=== PATIENT | male | born 1995 | race Caucasian/White ===

== ENCOUNTER → 2017-11-20 | Day surgery (SDC) | payer BC ==
--- NOTE | 2017-11-20 17:18 | RADIOLOGY REPORT (SQ) ---
EXAM DESCRIPTION: ARTHRO WRIST INJECTION; FLUORO/NEEDLE PLACEMENT COMPLETED DATE/TIME: 11/20/2017 2:59 pm; 11/20/2017 3:01 pm REASON FOR STUDY: PAIN IN LEFT WRIST M25.532 PAIN IN LEFT WRIST COMPARISON: None. FLUOROSCOPY TIME: 10 seconds 1 digital radiographic images saved to PACS. LIMITATIONS: None. PROCEDURE: Procedure, risks, benefits and alternatives explained to patient who then gave written co nsent. The dorsal left wrist was marked and a time-out was called for correct marking verification. Radiocarpal site marked using fluoroscopic guidance. Wrist prepped and draped using sterile techniqu e. Local anesthesia achieved using 4 mL of 1% lidocaine injection. 25 gauge needle introduced into the joint space under direct fluoroscopic visualization. Non-ionic contrast instilled to confirm intr a-articular position. Dilute gadolinium solution then injected. Needle removed and entry site covere d with sterile bandage. No immediate complications noted. TECHNIQUE: Digital images acquired during fluoroscopy and stored on PACS. Patient immediately take n to the MR suite for additional imaging. INJECTION LOCATION: Left dorsal radioscaphoid joint CONTRAST TYPE AND AMOUNT: 0.5 mL of Isovue-300 was injected to confirm intra-articular needle placeme nt. This was followed with 3 mL of dilute Prohance/Saline mixture. IMPRESSION: SUCCESSFUL NEEDLE PLACEMENT AND INJECTION FOR LEFT WRIST MR ARTHROGRAM. COMMENT: Quality ID #[id number]: Final reports for procedures using fluoroscopy that document radiation exp osure indices, or exposure time and number of fluorographic images (if radiation exposure indices are not available) TECHNICAL DOCUMENTATION: JOB ID: [id number] [employer]- All Rights Reserved Reading location - IP/workstation name: [facility]
--- NOTE | 2017-11-20 17:18 | RADIOLOGY REPORT (SQ) ---
EXAM DESCRIPTION: ARTHRO WRIST INJECTION; FLUORO/NEEDLE PLACEMENT COMPLETED DATE/TIME: 11/20/2017 2:59 pm; 11/20/2017 3:01 pm REASON FOR STUDY: PAIN IN LEFT WRIST M25.532 PAIN IN LEFT WRIST COMPARISON: None. FLUOROSCOPY TIME: 10 seconds 1 digital radiographic images saved to PACS. LIMITATIONS: None. PROCEDURE: Procedure, risks, benefits and alternatives explained to patient who then gave written co nsent. The dorsal left wrist was marked and a time-out was called for correct marking verification. Radiocarpal site marked using fluoroscopic guidance. Wrist prepped and draped using sterile techniqu e. Local anesthesia achieved using 4 mL of 1% lidocaine injection. 25 gauge needle introduced into the joint space under direct fluoroscopic visualization. Non-ionic contrast instilled to confirm intr a-articular position. Dilute gadolinium solution then injected. Needle removed and entry site covere d with sterile bandage. No immediate complications noted. TECHNIQUE: Digital images acquired during fluoroscopy and stored on PACS. Patient immediately take n to the MR suite for additional imaging. INJECTION LOCATION: Left dorsal radioscaphoid joint CONTRAST TYPE AND AMOUNT: 0.5 mL of Isovue-300 was injected to confirm intra-articular needle placeme nt. This was followed with 3 mL of dilute Prohance/Saline mixture. IMPRESSION: SUCCESSFUL NEEDLE PLACEMENT AND INJECTION FOR LEFT WRIST MR ARTHROGRAM. COMMENT: Quality ID #[id number]: Final reports for procedures using fluoroscopy that document radiation exp osure indices, or exposure time and number of fluorographic images (if radiation exposure indices are not available) TECHNICAL DOCUMENTATION: JOB ID: [id number] [employer]- All Rights Reserved Reading location - IP/workstation name: [facility]
--- NOTE | 2017-11-21 08:07 | RADIOLOGY REPORT (SQ) ---
EXAM DESCRIPTION: MRI LT UPPER JOINT WITH COMPLETED DATE/TIME: 11/20/2017 4:44 pm REASON FOR STUDY: PAIN IN LEFT WRIST M25.532 PAIN IN LEFT WRIST COMPARISON: None. TECHNIQUE: Left wrist post-arthrogram imaging includes T1 and T1 and T2 fat sat sequences. LIMITATIONS: Motion artifact, joint is over distended FINDINGS: JOINT DISTENSION: Slightly over distended with some leakage of contrast from the piriform recess and radioscaphoid joint. No loose body. BONE MARROW: No alteration of signal to suggest marrow replacement or edema. No occult fracture. No l arge osteophytes. Benign bone island in the trapezium on coronal image 11 and sagittal image 12. CARPAL ALIGNMENT AND ARTICULATION: Normal congruity of sigmoid notch at level of distal ruj without p ositive or negative ulnar variance. Normal capitolunate angle. No widening of scapholunate articulati on. SCAPHOLUNATE LIGAMENT: Without tear. No contrast in middle carpal compartment. LUNATO-TRIQUETRAL LIGAMENT: Without tear. No contrast in middle carpal compartment. TFC COMPLEX: Radial and ulnar attachments normal. Meniscus intact. Extensor carpi ulnaris tendon norm al without tendinopathy. No contrast in distal RUJ. EXTRINSIC LIGAMENTS AND DISTAL RADIO-ULNAR JOINT: Dorsal and volar distal RUJ ligaments intact withou t subluxation of the distal ulna with respect to the radius. 1-6 EXTENSOR COMPARTMENTS: Small amount of injected lidocaine in the extensor compartments. Specific ally no tendinopathy of the abductor pollicis longus or extensor pollicis brevis to suggest de Querva ins syndrome. CARPAL TUNNEL AND MEDIAN NERVE: Normal volume and morphology of carpal tunnel proximal at the level o f the radiocarpal joint and distally at the hook of the hamate. No thickening or signal alteration of median nerve. OTHER: 4 mm ganglion cyst along the scaphotrapezium joint, palmar aspect. This is best shown on charlie nal T2 image 8 and axial T2 image 9. IMPRESSION: No MR evidence of occult scaphoid fracture. No MR evidence of scapholunate ligament tear. No extension of contrast into the middle compartment. 4 mL ganglion cyst along the palmar aspect of the scaphotrapezium joint TECHNICAL DOCUMENTATION: JOB ID: [id number] [employer]- All Rights Reserved Reading location - IP/workstation name: [facility]
== END ==
LOC: RAD 14:06
PROVIDERS: ATTEND Orthopaedic Surgery
DX: M25.532 Pain in left wrist (principal); M67.432 Ganglion, left wrist
CPT/HCPCS: 25246; 77002

== ENCOUNTER 2018-06-08 20:05 | Emergency (ER) | payer SELFPAY ==
--- NOTE | 2018-06-08 20:50 | EKG REPORT ---
SEVERITY:- BORDERLINE ECG - SINUS RHYTHM INFERIOR Q WAVES, PROBABLY NORMAL VARIATION : Confirmed by: Jasmyne Loja 08-Jun-2018 20:49:35
[2018-06-08] MEDS ORDERED: ASPIRIN 81 MG TABLET, CHEWABLE PO ONE (22:21)
--- NOTE | 2018-06-08 22:23 | ER Document Report ---
ED Medical Screen (RME) - General Chief Complaint: Chest Pain Stated Complaint: CHEST PAIN Time Seen by Provider: 06/08/18 22:17 Notes: Patient is a 23-year-old male presents the emergency department complaining of generalized chest pain. Patient states initially the pain started in the center of his chest and felt as though a squeezing of his heart. Patient states at that time the pain did radiate to his left shoulder. States he got dizzy and was weak at that time. Patient states now he only has a generalized pressure in the center of his chest. Patient denies any history of GERD or eating anything out of the ordinary. Patient denies any cough or congestion or fever. Patient states he does believe that his father had a heart attack at age 40 and states that on his paternal side there are a lot of "heart issues." Past medical history: None Medications: None Allergies: Morphine Patient states he does smoke marijuana on a regular basis but denies any use of cocaine or any other illicit drugs. GENERAL: Alert, interacts well. No acute distress. LUNGS: Clear to auscultation bilaterally, no wheezes, rales, or rhonchi. No respiratory distress. HEART: Regular rate and rhythm. No murmur Chest: No crepitus felt, no erythema or ecchymosis noted. Pain does not change upon deep palpation or inspiration. I have greeted and performed a rapid initial assessment of this patient. A comprehensive ED assessment and evaluation of the patient, analysis of test results and completion of the medical decision making process will be conducted by additional ED providers. TRAVEL OUTSIDE OF THE [place] IN LAST 30 DAYS: No - Related Data Allergies/Adverse Reactions: morphine Adverse Reaction (Severe, Verified 06/08/18 20:10) Seizures Past Medical History - Social History Drug Abuse: Marijuana Family history: CAD, DM, Hypertension, Other - mental health Pulmonary Medical History: Reports: Hx Asthma - As a youth Renal/ Medical History: Denies: Hx Peritoneal Dialysis Psychiatric Medical History: Reports: Hx Anxiety, Hx Depression - manic Past Surgical History: Reports: Hx Herniorrhaphy - x2, Hx Orthopedic Surgery - L ANKLE SCREWS, L ELBOW - Immunizations Immunizations up to date: Yes Hx Diphtheria, Pertussis, Tetanus Vaccination: No Physical Exam - Vital signs Vitals: Temp Pulse Resp BP Pulse Ox 98.3 F 89 16 120/65 100 06/08/18 20:37 01/18/19 20:37 06/08/18 20:37 06/08/18 20:37 06/08/18 20:37 Course - Vital Signs Vital signs: Temp Pulse Resp BP Pulse Ox 98.3 F 89 16 120/65 100 06/08/18 20:37 06/08/18 20:37 06/08/18 20:37 06/08/18 20:37 06/08/18 20:37 Doctor's Discharge - Discharge Referrals: ANDRE SALAZAR DO [Primary Care Provider] - Follow up as needed
[2018-06-08 22:41] LABS: ABSOLUTE BASOPHILS # (AUTO) 0.1 10^3/uL (0.0-0.2); ABSOLUTE EOSINOPHILS # (AUTO) 0.3 10^3/uL (0.0-0.6); ABSOLUTE LYMPHOCYTES (AUTO) 3.3 10^3/uL (0.5-4.7); ABSOLUTE MONOCYTES (AUTO) 0.7 10^3/uL (0.1-1.4); ABSOLUTE NEUT (AUTO) 5.6 10^3/uL (1.7-8.2); EOSINOPHILS % (AUTO) 2.6 % (0-6); HEMATOCRIT 43.2 % (37.9-51.0); HEMOGLOBIN 15.2 g/dL (13.5-17.0); LYMPHOCYTES % (AUTO) 33.1 % (13-45); MEAN CORPUSCULAR HEMOGLOBIN 33.4 pg (27.0-33.4); MEAN CORPUSCULAR HGB CONC 35.1 g/dL (32.0-36.0); MEAN CORPUSCULAR VOLUME 95 fl (80-97); PLATELET COUNT 298 10^3/uL (150-450); RED BLOOD COUNT 4.54 10^6/uL (4.35-5.55); RED CELL DISTRIBUTION WIDTH 12.3 % (11.5-14.0); SEGMENTED NEUTROPHILS % (AUTO) 56.3 % (42-78); TOTAL CELLS COUNTED % (AUTO) 100 %
[2018-06-08 22:57] LABS: ALANINE AMINOTRANSFERASE 24 U/L (21-72); ALBUMIN 4.9 g/dL (3.5-5.0); ALKALINE PHOSPHATASE 55 U/L (38-126); ANION GAP 10 (5-19); ASPARTATE AMINO TRANSFERASE 23 U/L (17-59); BILIRUBIN,DIRECT 0.2 mg/dL (0.0-0.4); BILIRUBIN,TOTAL 0.5 mg/dL (0.2-1.3); BLOOD UREA NITROGEN 14 mg/dL (7-20); CALCIUM 9.5 mg/dL (8.4-10.2); CARBON DIOXIDE 29 mmol/L (22-30); CHLORIDE 102 mmol/L (98-107); CREATINE KINASE 134 U/L (55-170); GLUCOSE 92 mg/dL (75-110); POTASSIUM 4.4 mmol/L (3.6-5.0); SODIUM 141.2 mmol/L (137-145); TOTAL PROTEIN 7.6 g/dL (6.3-8.2)
[2018-06-08 23:09] LABS: CREATINE KINASE MB 0.97 ng/mL (<4.55)
--- NOTE | 2018-06-08 23:16 | RADIOLOGY REPORT (SQ) ---
EXAM DESCRIPTION: XR CHEST 1 VIEW COMPLETED DATE/TME: 06/08/2018 22:21 CLINICAL HISTORY: 23 years Male, CP COMPARISON: None. NUMBER OF VIEWS/TECHNIQUE: 1/AP FINDINGS: Adequate lung volume, clear parenchyma, normal cardiac silhouette, and intact bony thorax. IMPRESSION: No acute cardiopulmonary findings.
[2018-06-08 23:21] LABS: TROPONIN I < 0.012 ng/mL
--- NOTE | 2018-06-09 02:15 | ER Document Report ---
ED General - General Chief Complaint: Chest Pain Stated Complaint: CHEST PAIN Time Seen by Provider: 06/08/18 22:17 Notes: Patient is a 23-year-old male presents the emergency department complaining of generalized chest pain. Patient states initially the pain started in the center of his chest and felt as though a squeezing of his heart. Patient states at that time the pain did radiate to his left shoulder. States he got dizzy and was weak at that time. Patient states now he only has a generalized pressure in the center of his chest. Patient denies any history of GERD or eating anything out of the ordinary. Patient denies any cough or congestion or fever. Patient states he does believe that his father had a heart attack at age 40 and states that on his paternal side there are a lot of "heart issues." Past medical history: None Medications: None Allergies: Morphine Patient states he does smoke marijuana on a regular basis but denies any use of cocaine or any other illicit drugs. GENERAL: Alert, interacts well. No acute distress. LUNGS: Clear to auscultation bilaterally, no wheezes, rales, or rhonchi. No respiratory distress. HEART: Regular rate and rhythm. No murmur Chest: No crepitus felt, no erythema or ecchymosis noted. Pain does not change upon deep palpation or inspiration. TRAVEL OUTSIDE OF THE [place] IN LAST 30 DAYS: No - Related Data Allergies/Adverse Reactions: morphine Adverse Reaction (Severe, Verified 06/08/18 20:10) Seizures Past Medical History - General Information source: Patient - Social History Smoking Status: Current Every Day Smoker Drug Abuse: Marijuana Family History: Reviewed & Not Pertinent Patient has suicidal ideation: No Patient has homicidal ideation: No Pulmonary Medical History: Reports: Hx Asthma - As a youth Renal/ Medical History: Denies: Hx Peritoneal Dialysis Psychiatric Medical History: Reports: Hx Anxiety, Hx Depression - manic Past Surgical History: Reports: Hx Herniorrhaphy - x2, Hx Orthopedic Surgery - L ANKLE SCREWS, L ELBOW - Immunizations Immunizations up to date: Yes Hx Diphtheria, Pertussis, Tetanus Vaccination: No Review of Systems - Review of Systems Constitutional: No symptoms reported EENT: No symptoms reported Cardiovascular: See HPI Respiratory: See HPI Gastrointestinal: No symptoms reported Genitourinary: No symptoms reported Male Genitourinary: No symptoms reported Musculoskeletal: No symptoms reported Skin: No symptoms reported Hematologic/Lymphatic: No symptoms reported Neurological/Psychological: No symptoms reported Physical Exam - Vital signs Vitals: Temp Pulse Resp BP Pulse Ox 98.3 F 89 16 120/65 100 06/08/18 20:37 06/08/18 20:37 06/08/18 20:37 06/08/18 20:37 06/08/18 20:37 - Notes Notes: GENERAL: Alert, interacts well. No acute distress. HEAD: Normocephalic, atraumatic. EYES: Pupils equal, round, and reactive to light. Extraocular movements intact. ENT: Oral mucosa moist, tongue midline. NECK: Full range of motion. Supple. Trachea midline. LUNGS: Clear to auscultation bilaterally, no wheezes, rales, or rhonchi. No respiratory distress. HEART: Regular rate and rhythm. No murmur ABDOMEN: Soft, non-tender. Non-distended. Bowel sounds present in all 4 quadrants. EXTREMITIES: Moves all 4 extremities spontaneously. No edema, normal radial and dorsalis pedis pulses bilaterally. No cyanosis. BACK: no cervical, thoracic, lumbar midline tenderness. No saddle anesthesia, normal distal neurovascular exam. NEUROLOGICAL: Alert and oriented x3. Normal speech. cranial nerves II through XII grossly intact PSYCH: Normal affect, normal mood. SKIN: Warm, dry, normal turgor. No rashes or lesions noted. Course - Re-evaluation Re-evalutation: Patient's initial troponin was negative at this time EKG shows no signs of ST segment changes. Discussed potential treatment modality with patient. Discussed use of nitroglycerin and potentially use of Gastritis medications. Patient states he does not want any medications at this time. States that the pain feels "a little bit better." Discussed Repeat troponin draw and waiting for results. Patient voices understanding and is willing to repeat a troponin. Patient's repeat troponin is also negative. Patient continues to state that the pain has gotten better. States he no longer feels dizzy Or weak. Again discussed treatment of the patient's chest pain with potential nitroglycerin or Indigestion medications. Patient continues to wish to refuse treatment at this time. States because both of his blood tests are negative he would like to be discharged from the hospital. Discussed continued close follow-up with primary care provider and inevitably cardiology. Patient does only have a heart score of 2 1 if I give the history of moderately suspicious and 2 for risk factors. Again discussed close return precautions, patient voices understanding and is requesting discharge at this time. Patient stable for discharge. - Vital Signs Vital signs: Temp Pulse Resp BP Pulse Ox 98.2 F 81 18 118/73 99 06/09/18 02:25 06/09/18 02:25 06/09/18 02:25 06/09/18 02:25 06/09/18 02:25 - Laboratory Result Diagrams: 06/08/18 22:31 06/08/18 22:31 Discharge - Discharge Clinical Impression: Chest pain Qualifiers: Chest pain type: unspecified Qualified Code(s): R07.9 - Chest pain, unspecified Condition: Stable Disposition: HOME, SELF-CARE Instructions: Chest Pain of Unclear Cause ([facility]) Additional Instructions: As we discussed you have been seen and treated in the emergency department for generalized chest pain. At this time your EKG looks normal and your cardiac muscle appears normal. Please make sure you follow-up with your primary care provider in the next 24-48 hours and please return to the emergency room should you have any other concerning symptoms. Forms: Return to Work
[2018-06-09 02:26] VITALS: BP 118/73
== END 2018-06-09 02:26 | disposition home or self-care (01) ==
LOC: ER 20:05
DX: R07.9 Chest pain, unspecified (principal); F17.200 Nicotine dependence, unspecified, uncomplicated; Z88.6 Allergy status to analgesic agent
CPT/HCPCS: 36415; 71045; 80053; 82550; 82553; 84484; 85025; 93005; 93010; 99285

== ENCOUNTER 2019-01-07 04:37 | Emergency (ER) | payer OTHER ==
[2019-01-07 04:52] VITALS: BP 108/68
[2019-01-07] MEDS ORDERED: KETOROLAC TROMETHAMINE 60 MG/2 ML SDV IM ONE (05:13)
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
== END 2019-01-07 06:10 | disposition home or self-care (01) ==
LOC: ER 04:37
DX: M54.42 Lumbago with sciatica, left side (principal); F17.210 Nicotine dependence, cigarettes, uncomplicated
CPT/HCPCS: J1885

== ENCOUNTER 2020-05-07 06:54 | Emergency (ER) | payer SELFPAY ==
--- NOTE | 2020-05-07 10:32 | ER Document Report ---
ED General - General Chief Complaint: Congestion Stated Complaint: SHORTNESS OF BREATH,CONGESTION Time Seen by Provider: 05/07/20 10:03 TRAVEL OUTSIDE OF THE [place] IN LAST 30 DAYS: No - HPI Notes: Patient is a 24-year male who presents emergency department for evaluation of cough and chest congestion. He has had symptoms for about a week. He said no fevers or chills. Some very mild nausea but no vomiting. Normal bowel movements. He denies any anosmia. He does complain of some generalized body aches. He and his seem to have the same symptoms. She tested negative for Covid of recently. He has had some minimal exposure to his [id number], who was in fact Covid +2 weeks ago. - Related Data Allergies/Adverse Reactions: morphine Adverse Reaction (Severe, Verified 05/07/20 08:00) Seizures Home Medications: None Past Medical History - General Information source: Patient - Social History Smoking Status: Current Every Day Smoker Frequency of alcohol use: Occasional Drug Abuse: Marijuana Family History: Reviewed & Not Pertinent Pulmonary Medical History: Reports: Hx Asthma - Childhood only Renal/ Medical History: Denies: Hx Peritoneal Dialysis Psychiatric Medical History: Reports: Hx Anxiety, Hx Depression - manic Past Surgical History: Reports: Hx Herniorrhaphy - x2, Hx Orthopedic Surgery - L ANKLE SCREWS, L ELBOW - Immunizations Immunizations up to date: Yes Hx Diphtheria, Pertussis, Tetanus Vaccination: No Review of Systems - Review of Systems Constitutional: Malaise EENT: Nose congestion Cardiovascular: No symptoms reported Respiratory: See HPI Gastrointestinal: See HPI Genitourinary: No symptoms reported Musculoskeletal: See HPI Skin: No symptoms reported Neurological/Psychological: No symptoms reported Physical Exam - Vital signs Vitals: Temp Pulse Resp BP Pulse Ox 98.3 F 78 18 122/74 98 05/07/20 07:25 05/07/20 07:25 05/07/20 07:25 05/07/20 07:25 05/07/20 07:25 - Notes Notes: Vital signs reviewed, please refer to chart. Head is normocephalic, atraumatic. Pupils equal round, reactive to light. Oral mucosa is moist. Pharynx is mildly erythematous with some posterior pharyngeal cobblestoning noted. No facial tenderness. Neck is supple without meningismus. Heart is regular rate and rhythm. Lungs are clear to auscultation bilaterally. Abdomen is soft, nontender, normoactive bowel sounds throughout. Extremities without cyanosis, clubbing. Posterior calves are nontender. Peripheral pulses are equal. Skin is warm and dry. Patient is awake, alert, neurological exam is nonfocal. Course - Re-evaluation Re-evalutation: 05/07/20 10:30 Patient presents emergency department for evaluation. He has an upper respiratory type illness. He is advised to quit smoking. His lungs are clear, he is oxygenating well. At this point the patient is concerned about the possibility of Covid. We talked at length, I find it unlikely, but we will perform testing. He is to be treated as a PUI and voiced understanding to the rules of quarantine. Otherwise we will perform Covid testing, send him with a prescription for Tessalon Perles. He is to return to the ED with worsening or new concerning symptoms of any sort. - Vital Signs Vital signs: Temp Pulse Resp BP Pulse Ox 98.3 F 73 16 121/72 99 05/07/20 07:25 05/07/20 10:38 05/07/20 10:38 05/07/20 10:38 05/07/20 10:38 - Laboratory Results Critical Laboratory Results Reviewed: No Critical Results - Radiology Results Critical Radiology Results Reviewed: No Critical Results Discharge - Discharge Clinical Impression: Viral respiratory infection, Person under investigation for COVID-19 Condition: Stable Disposition: HOME, SELF-CARE Instructions: COVID-19 Guidance for Persons Under Investigation, Upper Respiratory Illness ([facility]) Additional Instructions: Tessalon Perles as needed for severe cough. You can also take other [id number] medications to manage symptoms. You are being tested for COVID-19. Please quarantine accordingly. Stay hydrated. Follow-up with your primary care provider in 1 week. If you develop increased difficulty breathing, uncontrolled fevers, or any other new or concerning symptoms, please return immediately to the emergency department for evaluation. Prescriptions: Benzonatate [Tessalon Perles 100 mg Capsule] 100 mg PO Q8HP PRN #40 capsule PRN Reason:
[2020-05-07 10:39] VITALS: BP 121/72
== END 2020-05-07 10:58 | disposition home or self-care (01) ==
LOC: ER 06:54
DX: J98.8 Other specified respiratory disorders (principal); B97.89 Other viral agents as the cause of diseases classified elsewhere; R05 Cough; R09.89 Other specified symptoms and signs involving the circulatory and respiratory systems; R09.81 Nasal congestion; R53.81 Other malaise; R11.0 Nausea; R52 Pain, unspecified; F17.200 Nicotine dependence, unspecified, uncomplicated; F12.10 Cannabis abuse, uncomplicated; Z20.828 Contact with and (suspected) exposure to other viral communicable diseases
CPT/HCPCS: 99283; 87635; C9803